=== PATIENT | male | born 1960 | race Caucasian/White ===

== ENCOUNTER 2017-03-04 08:18 | Emergency (ER) | payer OTHER, BC ==
[~2017-03-04 08:18] MED LIST: COUM5TAB PO; ENOX100P SC; SIMV40 PO
[2017-03-04 08:24] VITALS: BP 143/79; PULSE 82; RESP 16; TEMP 98.3
[2017-03-04] MEDS ORDERED: NORC5TAB PO (08:51)
--- NOTE | 2017-03-04 08:51 | PD ---
HPI . Right shoulder injury Chief Complaint: Injury Time Seen by Provider: 08:40 Travel History International Travel<30 days: No Contact w/Intl Traveler<30days: No Traveled to known affect area: No History of Present Illness HPI Patient presents with an acute right shoulder injury. The incident happened just prior to presentation. 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 He had the acute onset of pain. He subsequently took 3 ibuprofen and applied ice to his shoulder. He presented to us for further evaluation. He rates his pain as 6/ 10 at rest and states that the pain escalates to 10 out of 10 with any sort of movement. He reports limited range of motion. He states that his symptoms are very similar to symptoms that he had in his left shoulder when he needed to have a rotator cuff repair. PFSH Past Medical History Hx Anticoagulant Therapy: Yes Arthritis: No Heart Rhythm Problems: No High Cholesterol: Yes Chest Pain: No Congestive Heart Failure: No Cerebrovascular Accident: No GERD: No Genitourinary: No Hiatal Hernia: No Kidney Stones: No Musculoskeletal: No Neurologic: No Reproductive: No Respiratory: Yes (hx of PE) Migraines: No Renal Failure: No Seizures: No Ulcer: No Past Surgical History Abdominal Surgery: Yes (UMBILICAL HERNIA REPAIR) Ear Surgery: No Endocrine Surgery: No Eye Surgery: No Genitourinary Surgery: No Gynecologic Surgery: No Oral Surgery: No Social History Alcohol Use: Yes (2 BEER DAY) Tobacco Use: Yes (1 1/2 PACK DAY , QUIT 6 DAYS AGO) Substance Use: No Allergies-Medications (Allergen,Severity, Reaction): Coded Allergies: penicillin G (Unverified Allergy, Severe, HIVES, 03/04/17) Reported Meds & Prescriptions Reported Meds & Active Scripts Active Reported [b/p med] Zocor (Simvastatin) 20 Mg Tab 20 Mg PO DAILY Eliquis (Apixaban) 5 Mg Tab 5 Mg PO BID Review of Systems Except as stated in HPI: all other systems reviewed are Neg Musculoskeletal: Positive: Myalgias, Arthralgias, Limited ROM Physical Exam Narrative GENERAL: Awake and alert and in no acute distress. SKIN: Warm and dry. HEAD: Atraumatic. Normocephalic. EYES: Pupils equal and round. NECK: Trachea midline. CARDIOVASCULAR: Regular rate and rhythm. RESPIRATORY: No accessory muscle use. MUSCULOSKELETAL: No obvious deformities. No edema. Point tender in the anterior glenohumeral joint line. Decreased range of motion. Distally neurovascularly intact. NEUROLOGICAL: Awake and alert. No obvious cranial nerve deficits. Motor grossly within normal limits. Normal speech. PSYCHIATRIC: Appropriate mood and affect; insight and judgment normal. Data Data Last Documented VS Vital Signs Date Time Temp Pulse Resp B/P (MAP) Pulse Ox O2 Delivery O2 Flow Rate FiO2 03/04/17 08:24 98.3 82 16 143/79 (100) Orders Orders Shoulder, Complete (>2vws) (03/04/17 08:44) [facility] Medical Decision Making Medical Screen Exam Complete: Yes Emergency Medical Condition: Yes Differential Diagnosis Differential diagnosis of extremity trauma includes but is not limited to fracture, sprain or strain, dislocation, contusion Narrative Course This patient presents for the evaluation of the right shoulder injury. He most likely has either a muscle or tendon strain or a rotator cuff injury. An x-ray is pending. The plan will be to discharge him to follow-up with his Workmen's Comp. doctor for further evaluation and treatment. He will be placed in a sling for comfort. He'll be given a prescription for [place] and instructed to continue ice and elevation. Last Impressions Shoulder X-Ray 03/04/17 0844 Signed Impressions: Service Date/Time: February 08:51 - CONCLUSION: Unremarkable study. Octaviano Yee MD The x-ray was independently viewed by me. Diagnosis Primary Impression: Right shoulder strain Qualified Codes: S46.911A - Strain of unspecified muscle, fascia and tendon at shoulder and upper arm level, right arm, initial encounter Patient Instructions: General Instructions, Muscle Strain (DC) Additional Instructions: Follow-up with workman's comp Med/Other Pt SpecificInfo: Prescription(s) given Disposition: DISCHARGE HOME Condition: Stable Neli Pina MD Mar 04, 2017 08:51
[2017-03-04] MEDS ORDERED: APIX5TAB PO (09:03)
[2017-03-04] MEDS ORDERED: ZOCO20TA PO (09:03)
[2017-03-04] MEDS ORDERED: b/p med (09:03)
--- NOTE | 2017-03-04 09:22 | RADRPT ---
EXAM DATE/TIME: 03/04/2017 08:51 [place] COMPARISON: No previous studies available for comparison. 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 MEDICAL HISTORY : Hypercholesterolemia. Hypertension Pulmonary embolism SURGICAL HISTORY : Umbilical hernia repair. Left rotator cuff repair. ENCOUNTER: Initial ACUITY: 1 day PAIN SCORE: 7/10 LOCATION: Right shoulder FINDINGS: No definite fractures, or dislocations are identified. No definite lytic or sclerotic lesion is seen . The joint space is well maintained. CONCLUSION: Unremarkable study. Octaviano Yee MD on March 04, 2017 at 9:19 Board Certified Radiologist. This report was verified electronically.
== END 2017-03-04 09:57 | disposition home or self-care (01) ==
LOC: PHED 08:18
DX: S46.911A Strain of unspecified muscle, fascia and tendon at shoulder and upper arm level, right arm, initial encounter (principal); X50.0XXA Overexertion from strenuous movement or load, initial encounter; Y99.0 Civilian activity done for income or pay; I10 Essential (primary) hypertension; Z86.711 Personal history of pulmonary embolism; Z88.0 Allergy status to penicillin; F17.210 Nicotine dependence, cigarettes, uncomplicated
CPT/HCPCS: 73030; 99283